=== PATIENT | male | born 1985 | race African-American/Black ===

== ENCOUNTER 2016-12-03 | Emergency (ER) | payer MEDICAID ==
[~2016-12-03] VITALS: Ht 180.3 cm; Wt 79.4 kg
[~2016-12-03] MED LIST: DILANTIN100 MG ORAL; DILANTIN30 MG ORAL
[2016-12-03 00:06] VITALS: BP 131/70
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
[2016-12-03] MEDS ORDERED: IBUPROFEN600 MG ORAL (00:58)
[2016-12-03 01:19] VITALS: BP 131/72
--- NOTE | 2016-12-03 08:53 | Diagnostic Imaging Report ---
Indication: TRAUMA Comparison: None Findings: Multiple views of the left ribs show no evidence of acute fractures. Bony mineralization is normal. No bony destructive lesions are identified. Visualized portions of the left lung is clear. Soft tissues are unremarkable. There is no evidence of pneumothorax. Single view of the chest is normal. Impression: Normal left rib series Normal chest.
--- NOTE | 2016-12-03 08:54 | Diagnostic Imaging Report ---
Indication: TRAUMA Comparison: None Findings: 2 views of the left radius and ulna show no acute fractures or dislocations. Bony mineralization is normal. No bony destructive lesions are identified. Soft tissues are unremarkable. Impression: Normal left forearm
== END 2016-12-03 01:19 | disposition home or self-care (01) ==
LOC: EMR 00:17
DX: S50.12XA Contusion of left forearm, initial encounter (principal); S29.8XXA Other specified injuries of thorax, initial encounter; Y08.89XA Assault by other specified means, initial encounter; Y92.89 Other specified places as the place of occurrence of the external cause
CPT/HCPCS: 71111; 99284

== ENCOUNTER 2016-12-21 04:18 | Emergency (ER) | payer MEDICAID ==
[~2016-12-21] VITALS: Ht 180.3 cm; Wt 79.4 kg
[~2016-12-21 04:18] MED LIST changes: +IBUPROFEN600 MG ORAL
[2016-12-21] MEDS ORDERED: KEPPRA500 MG ORAL (04:22)
[2016-12-21] MEDS ORDERED: DILANTIN100 MG ORAL (04:24)
[2016-12-21] MEDS ORDERED: KEPPRA500 M4 ORAL (04:24)
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
[2016-12-21] MEDS ORDERED: Phenytoin 250mg/5ml vial ONE (04:26)
[2016-12-21 04:28] VITALS: BP 145/67
[2016-12-21] MEDS ORDERED: levETIRAcetam 500mg/NS100ml 100 ML IVPB ONE (04:30)
[2016-12-21] MEDS ORDERED: Phenytoin 500 MG in NS 110 ML IVPB ONE (04:30)
[2016-12-21] MEDS ORDERED: Phenytoin 100mg cap ORAL ONE (04:30)
[2016-12-21 05:40] VITALS: BP 145/67
== END 2016-12-21 05:47 | disposition home or self-care (01) ==
LOC: EDBD 04:18 → EMR 04:30
DX: G40.909 Epilepsy, unspecified, not intractable, without status epilepticus (principal); Z91.14 Patient's other noncompliance with medication regimen
CPT/HCPCS: 96365; 96366; 99284; J1165; J1953